=== PATIENT | female | born 1950 | race Two or more races ===

== ENCOUNTER 2024-06-06 09:02 | Emergency (ER) | payer MEDICARE, MEDICAID ==
[~2024-06-06] VITALS: Ht 165.1 cm; Wt 120.0 kg
[2024-06-06 09:15] VITALS: TEMP 36.66960
[2024-06-06] MEDS: ONDANSETRON HCL 4MG/2ML INJ IV ONE ×2 (09:15)
[2024-06-06 09:24] LABS: BASOPHILS % 0.4 % (0.0-2.0); EOSINOPHILS % 1.3 % (0.0-5.0); HEMOGLOBIN. 14.8 g/dL (12.0-16.0); LYMPHOCYTES % 45.4 % (20.0-50.0); MEAN CORPUSCULAR HEMOGLOBIN 29.3 pg (28.0-32.0); MEAN CORPUSCULAR HGB CONC 33.6 g/dL (31.0-37.0); MEAN CORPUSCULAR VOLUME 87.4 fL (81.0-99.0); MEAN PLATELET VOLUME 7.6 fl (7.4-10.4); NEUTROPHILS % 45.9 % (40.0-76.0); PLATELET 282 x1000/uL (130-400); RED BLOOD CELL COUNT 5.03 mill/uL (4.2-5.4); RED CELL DISTRIBUTION WIDTH 13.4 % (11.6-14.6); WHITE BLOOD COUNT 11.6 x1000/uL (4.5-11.0)
[2024-06-06 09:27] LABS: CARBON DIOXIDE 25 mEq/L (21-32); CHLORIDE 107 mEq/L (98-107); POTASSIUM 3.6 mEq/L (3.5-5.1); SODIUM 142 mEq/L (136-145)
[2024-06-06 09:28] LABS: CALCIUM 9.3 mg/dL (8.7-10.4)
[2024-06-06 09:30] VITALS: O2SAT 99
[2024-06-06] MEDS: PROPOFOL 10MG/ML 100ML 100 ML IV ONE (09:30)
[2024-06-06 09:32] LABS: CREATININE 0.7 mg/dL (0.6-1.0)
[2024-06-06 09:33] LABS: GLUCOSE 164 mg/dL (70-105); UREA NITROGEN BLOOD 10 mg/dL (9-23)
[2024-06-06 09:34] LABS: TROPONIN I HIGH SENSITIVITY 4 ng/L (3.0-34)
[2024-06-06] MEDS ORDERED: NICARDIPINE 40MG/200ML PREMIX 200 ML IV STA (09:39)
[2024-06-06] MEDS ORDERED: DESMOPRESSIN ACETATE IVPB 2 MCG in SODIUM CHLORIDE 0.9% 50 ML IV ONE (09:45)
[2024-06-06 09:46] VITALS: PULSE 68; RESP 22; O2SAT 100
[2024-06-06 09:46] LABS: ETHANOL BLOOD < 10 mg/dL (<10)
[2024-06-06 09:48] VITALS: PULSE 54; RESP 20; O2SAT 100
[2024-06-06 10:00] LABS: INR 0.9; PROTHROMBIN TIME 10.3 sec (9.6-11.0)
[2024-06-06] MEDS: ETOMIDATE 2MG/ML 10ML VIAL IV ONE (10:01)
[2024-06-06] MEDS: SUCCINYLCHOLINE CHLORIDE 200MG/10ML IV ONE (10:01)
[2024-06-06] MEDS ORDERED: MANNITOL 12.5G (25%) VIAL 50ML IV ONE (10:30)
[2024-06-06] MEDS ORDERED: NOREPINEPHRINE 8MG/250ML PMX 250 ML IV ONE (10:48)
[2024-06-06 10:58] VITALS: BP 190/85
[2024-06-06] MEDS: SODIUM CHLORIDE 0.9% IV NR (10:58)
[2024-06-06] MEDS: NOREPINEPHRINE 8MG/250ML PMX 250 ML IV STA (10:58)
[2024-06-06] MEDS: DESMOPRESSIN ACETATE IV NR (10:58)
== END 2024-06-06 11:10 | disposition short-term general hospital (02) ==
LOC: ER 09:02 → CANBEDREQ 09:47 → ER 11:10
DX: I60.9 Nontraumatic subarachnoid hemorrhage, unspecified (principal); Z46.82 Encounter for fitting and adjustment of non-vascular catheter
CPT/HCPCS: 71045; 70450; 93005; 96365; 96375; 80048; 80320; 85025; 85610; 84484; 36415; 70496; 70498; 31500; 36556; 99291; J2597; J3490; J2150; J2405; J2704; G0480